=== PATIENT | male | born 1935 | race Caucasian/White ===

== ENCOUNTER 2018-07-08 12:49 | Outpatient (CLI) | payer MEDICARE, BC ==
--- NOTE | 2018-07-08 17:26 | MRI ---
MRI OF LUMBAR SPINE WITHOUT CONTRAST: 07/08/18 HISTORY: Lumbar stenosis with claudication. Bilateral leg weakness. Low back pain. FINDINGS: There is heterogeneous marrow signal intensity of the lumbar vertebrae. Vertebral body height is mare ntained. There is no evidence of fracture. Coronal images demonstrate rightward curvature of the uppe r lumbar spine and leftward curvature with rotation in the lower lumbar spine. Symmetric signal inte nsity of the visualized psoas muscles. There is a T2 hyperintense cyst emanating from the left kidney , incompletely evaluated measuring at least 4.5 cm in the anterior posterior dimension. The conus med ullaris terminates at the inferior aspect of L1. T12-L1: Desiccation with mild loss of disc space height. No significant central canal stenosis. Moder ate right and moderate to severe left foraminal narrowing. L1-L2: Desiccation with mild loss of disc space height. Generalized disc bulge does not cause any sig nificant central canal stenosis. Moderate right and left foraminal narrowing. L2-L3: Desiccation with mild loss of disc space height. Generalized disc bulge results in mild centra l canal stenosis. There is mild facet hypertrophy. Moderate right and mild to moderate left foraminal narrowing. L3-L4: Desiccation with moderate loss of disc space height. Generalized disc bulge, ligamentum flavum thickening and facet hypertrophy results in moderate central canal stenosis. There appear to be smal l synovial cysts adjacent to the right facet joint measuring approximately 3 mm. One of the cyst does abut the right subarticular zone and cause some narrowing with resultant mass effect upon the rupesh sing right L4 nerve root. Moderate right and left foraminal narrowing. L4-L5: There is a broad based osteophyte ridge. Ligamentum flavum thickening and facet hypertrophy ar e present. Moderate central canal stenosis. Moderate bilateral foraminal narrowing. L5-S1: Severe loss of disc space height. Generalized disc bulge does not cause any significant mass effect upon the thecal sac. No significant central canal stenosis. Moderate bilateral foraminal narr owing. IMPRESSION: Scoliosis of the lumbar spine as above. Degenerative changes in the lumbar spine as detailed above. POS: [facility]
== END 2018-07-08 12:50 | disposition home or self-care (01) ==
LOC: TBSIIMAG 12:49
PROVIDERS: ATTEND Neurological Surgery
DX: M48.062 Spinal stenosis, lumbar region with neurogenic claudication (principal); M41.9 Scoliosis, unspecified; M47.896 Other spondylosis, lumbar region
CPT/HCPCS: 72148